=== PATIENT | male | born 1970 | race Caucasian/White ===

== ENCOUNTER → 2019-03-15 | Outpatient (CLI) | payer OTHER ==
[2015-02-14 15:15] VITALS: BP 126/80
[~2019-03-15] MED LIST: ALBU2.5V8 IH; ASPI-621 PO; CETI10TA22 PO; CHOL100013 PO; CONTRAST GIVEN. MC PRN; DIAZ5TAB4 PO; DOCU-109 PO; ESOM40CA25 PO; FLUT9.9S NS; HYDR-2765 PO; IBUP-1060 PO; IOHEXOL 240 MG/ML 50ML VIAL. PO ONE; IOHEXOL 300 MG/ML 100ML VIAL. IV ONE; LACT1CAP8 PO; LORA10TA68 PO; MELO7.5T5 PO; MONT10TA49 PO; MULT1TAB97 PO; Methocarbamol PO; OMEP1CAP18 PO; Oxycodone Hcl/Acetaminophen PO; TRAM50TA PO; ZOLP10TA4 PO; ZOLP5TAB PO
--- NOTE | 2019-03-15 11:17 | KCIC ---
EXAM: CT ABDOMEN/PELVIS WITH CONTRAST. HISTORY: Weight loss. TECHNIQUE: Computed tomography of the abdomen and pelvis was performed after the intravenous administration of iodinated contrast. COMPARISON: None. FINDINGS: Lung windows through the visualized portions of the bases reveal a tiny pleural-based nodule in the right lower lobe on image 6 measuring <3 mm. This is most likely benign. Additional uncalcified nodules in the left lower lobe measure up to 5 mm on image 9. Bone windows reveal no suspicious lesions. The liver, gallbladder, adrenal glands, spleen and kidneys are unremarkable. The pancreas is mildly atrophic but no there is no ductal dilatation or evidence of parenchymal lesion. There are no pathologically enlarged lymph nodes. There is no small bowel obstruction or clear wall thickening. There is no evidence of appendicitis. IMPRESSION: 1. Negative examination. No cause for weight loss is identified. 2. Uncalcified nodules in the lower lobes measure 5 mm or less and are most likely benign. Follow-up could be considered in one year if there are risk factors and long-term stability is not already known. *One or more of the following individualized dose reduction techniques were utilized for this examination: 1. Automated exposure control. 2. Adjustment of the mA and/or kV according to patient size. 3. Use of iterative reconstruction technique. Electronically signed by: Saige Tucker MD (03/15/2019 11:15 AM) [facility]
== END | disposition home or self-care (01) ==
LOC: KCIC CT 09:01
PROVIDERS: ATTEND Internal Medicine Gastroenterology
DX: K86.89 Other specified diseases of pancreas (principal); R91.8 Other nonspecific abnormal finding of lung field
CPT/HCPCS: 74177; Q9966; Q9967

== ENCOUNTER → 2019-05-03 | Outpatient (CLI) | payer OTHER ==
[2015-02-14 15:15] VITALS: BP 126/80
[~2019-05-03] MED LIST changes: +AMIT25TA PO; +ASPI-630 PO; +BUPR1FIL SL; -CETI10TA22 PO; +CETI10TA24 PO; -CONTRAST GIVEN. MC PRN; +ESCITALOPRAM OX10 MG PO; +GABA300C18 PO; -IOHEXOL 240 MG/ML 50ML VIAL. PO ONE; -IOHEXOL 300 MG/ML 100ML VIAL. IV ONE; +KETO10TA PO; +TADA5TAB PO; +VARE1TAB21 PO
--- NOTE | 2019-05-03 10:36 | EKG ---
[facility] [address] [place] [address] Test Date: 2019-05-03 Test Time: 10:36:57 Pat Name: HARJINDER RODRIGUEZ Department: Room: Gender: Production Administrative Assistant: : [id number] Requested By: PINO ESPAÑA Order Number: [id number] Reading MD: Measurements Intervals Cornell Rate: 74 P: 55 WA: 170 QRS: 57 QRSD: 86 T: 52 QT: 368 QTc: 409 Interpretive Statements SINUS RHYTHM QRS(T) CONTOUR ABNORMALITY CONSIDER ANTEROLATERAL MYOCARDIAL DAMAGE POSSIBLY ABNORMAL ECG RI6.01 No previous ECG available for comparison
--- NOTE | 2019-05-03 12:16 | RAD ---
AP and Lateral Views of the Chest 05/03/2019 10:20 AM Indication: Preoperative Comparison: None Findings: There is no focal consolidation or infiltrate identified. The cardiomediastinal silhouette is within normal limits. There is no evidence of pneumothorax or pleural effusion. No acute osseous abnormalities are identified. Impression: No evidence of acute cardiopulmonary process. Electronically signed by: Bulmaro Odell MD (05/03/2019 12:13 PM) [facility]
== END | disposition home or self-care (01) ==
LOC: SURGPAT 10:15
PROVIDERS: ATTEND Orthopaedic Surgery
DX: Z01.818 Encounter for other preprocedural examination (principal); M75.101 Unspecified rotator cuff tear or rupture of right shoulder, not specified as traumatic; G47.30 Sleep apnea, unspecified
CPT/HCPCS: 71046; 93005

== ENCOUNTER 2019-05-04 09:34 | Day surgery (SDC) | payer OTHER ==
[~2019-05-04] VITALS: Ht 175.3 cm; Wt 76.5 kg
[~2019-05-04 09:34] MED LIST changes: -AMIT25TA PO; -BUPR1FIL SL; -ESCITALOPRAM OX10 MG PO; -GABA300C18 PO; +HYDROmorphone 2 MG/ML VIAL IV PRN; +IV RINGERS,LACTATED 1000ML 1,000 ML IV SCH; -KETO10TA PO; +MORPHINE SULFATE 2 MG/ML VIAL. IV PRN; +ONDANSETRON PF 4 MG/2 ML VIAL. IV PRN; +PROCHLORPERAZINE 10 MG/2 ML VIAL. IV PRN; +ceFAZolin SODIUM IV Push 1 GM VIAL. IVP PRN; +fentaNYL PF VIAL 100 MCG/2 ML VIAL IV PRN
[2019-05-04] MEDS ORDERED: BUPR1FIL SL (10:10)
[2019-05-04] MEDS ORDERED: AMIT25TA PO (10:11)
[2019-05-04] MEDS ORDERED: ESCITALOPRAM OX10 MG PO (10:11)
[2019-05-04] MEDS ORDERED: ROPIVacaine 0.5% PF 20 ML VIAL. ONE (10:21)
[2019-05-04] MEDS ORDERED: BUPIVACAINE MPF 0.5% 30 ML VIAL. ONE (10:21)
[2019-05-04] MEDS ORDERED: DEXAMETHASONE SOD PHOS 4 MG/ML VIAL ONE ×2 (10:21→10:22)
[2019-05-04] MEDS ORDERED: PROPOFOL 20 ML IV ONE ×2 (10:23→12:26)
[2019-05-04] MEDS ORDERED: ONDANSETRON PF 4 MG/2 ML VIAL. ONE ×2 (10:23→13:02)
[2019-05-04] MEDS ORDERED: LIDOCAINE 2% PF 5 ML VIAL. ONE (10:23)
[2019-05-04] MEDS ORDERED: MIDAZOLAM HCL/PF 2 MG/2 ML VIAL. ONE (10:30)
[2019-05-04] MEDS ORDERED: ePHEDrine PF IN SALINE 50 MG/10 ML SYRINGE. IV ONE (11:55)
[2019-05-04] MEDS: EPINEPHrine VIAL 30 MG/30 ML VIAL ONE ×2 (12:16→12:17)
[2019-05-04] MEDS ORDERED: KETOROLAC 30 MG/ML VIAL. ONE (13:02)
[2019-05-04] MEDS ORDERED: SEVOFLURANE 61 TO 120 MINUTES. IH ONE (13:04)
[2019-05-04] MEDS ORDERED: fentaNYL PF VIAL 100 MCG/2 ML VIAL ONE (13:14)
[2019-05-04] MEDS ORDERED: GABA300C18 PO (13:35)
[2019-05-04] MEDS ORDERED: KETO10TA PO (13:35)
--- NOTE | 2019-05-04 13:42 | DISCH ---
DISCHARGE INSTRUCTIONS Condition on Discharge Condition on Discharge: Stable Activity After Discharge Activity Instructions for Disc: Other, see below (gentle range of motion of shoulder permissible limit lifting to 5 pounds maximum to protect biceps repair) Bathing Instructions: Shower-keep dressing dry, No Tub Bath until see Lifting Instructions after Dis: No heavy lifting, No pulling or pushing Exercise Instruction after Dis: Progress as tolerated (encourage removal from sling and shoulder motion as tolerated maintain 5 pound lifting limit to protect biceps repair) Diet after Discharge Diet after Discharge: Regular Additional Diet Restrictions: resume home diet Liquid Texture: Thin Liquid Wound Incision Care Wound/Incision Care: Ice to area for comfort, Change dressing (May remove dressing in 2 days may then shower no soaking) Contacting the DRJuliane after DC Call your doctor for: Concerns you may have Follow-Up Follow up with: Dr. Gloria 1 week PINO GLORIA MD May 04, 2019 13:42
[2019-05-04 14:24] VITALS: BP 121/70
--- NOTE | 2019-05-04 14:28 | PDOC4 ---
Operative Note Operative Note Date of surgery: 05/04/2019 Preoperative diagnosis: Right rotator cuff tear and biceps labral tear Postoperative diagnosis: Partial-thickness distal supraspinatus tear anteriorly, type IV SLAP tear with extension to about 4:00 anteriorly and 10:30 position posteriorly with severe labral fraying and instability Operative procedure: Right shoulder arthroscopy extensive debridement of partial-thickness undersurface supraspinatus tear and extensive labral debridement with biceps tenodesis Surgeon: Juani Assist: Willian White speech language assistant Anesthesia: Gen. plus scalene block Estimated blood loss: 20 mL Complications: None Operative indications: Travis has had severe right shoulder pain ongoing and unresponsive to nonoperative treatment. We had discussed his MRI findings physical examination and the concern for a rotator cuff repair and involvement of the biceps labral complex with the possibility of rotator cuff repair biceps tenodesis and other treatment based on the intraoperative pathology. We talked about the sometimes long recovery process for shoulder surgery the rationale for protection of the repairs and exercises both at home and with physical therapy that are often required for satisfactory result. We also talked about the possibility of complications including nonhealing infection nerve or blood vessel damage continued pain medical or other anesthetic complications among others all his questions were answered he wishes to proceed with surgical evaluation and treatment. Operative text: Patient was identified procedure verified patient placed in the supine position on the operating table. After adequate amounts of general anesthesia were administered along with the pre-existing scalene block he was placed in the decubitus position right side up all bony prominences were well- padded and the right shoulder was examined under anesthesia found to have full range of motion no instability. The right shoulder was then prepped and draped in standard sterile fashion placed in arthroscopic arm baez with a total of 10 pounds of traction and after timeout was performed patient procedure identified and verified a standard posterior portal was established an anterior portal established using spinal needle localization and the shoulder joint was systematically examined. Glenohumeral joint surfaces were noted to be well preserved with minimal chondromalacia. He had extensive fraying and involvement of the superior labrum extending anteriorly to about the 4 o'clock position overall posteriorly to about the 10:30 position on the clock face and after light debridement was carried out with the arthroscopic shaver to allow visualization he was noted to have a type IV SLAP tear splitting up into the biceps and affecting its stability. I elected at this point to proceed with the preoperative plan of a biceps tenodesis and after the biceps tendon was tagged and cut the labrum was extensively debrided to remove all of the unstable tissue superiorly extending around the clock face anteriorly and posteriorly as required. He was noted to have a partial undersurface tear of the anterior supraspinatus which was trimmed back to stable tissue and found to encompass less than 50% of the tendon thickness and the remainder of the insertion was intact and a normal bare area of the humerus noted capsule ligament structures otherwise normal intra-articularly. The subacromial space was entered and bursal was cleared to allow visualization and the rotator cuff was examined in all d egrees of internal/external rotation and found to have no further compromise on the bursal surface. Biceps tenodesis was carried out through the anterior portal with the biceps tendon whipstitch, drilling carried out over a guidewire in the lower portion of the bicipital groove with a 7 mm drill bit and an 8 mm [employer] absorbable bolt fixation with excellent tension on the long head biceps tendon. The shoulder joint was drained of arthroscopic fluid portals closed with buried Vicryl and subcuticular Monocryl suture Steri-Strips and Mastisol were applied followed by sterile dressings patient was returned to recovery room in s table condition having tolerated procedure well. Her there are I discussed extensive plans with his about his postoperative pain management to include going back on his scheduled Suboxone adding gabapentin and ketorolac oral as the patient wishes to remain off narcotics if at all possible. If his pain is severe and uncontrolled with these measures he does have a prescription for Dilaudid 2 mg #20 to get him through until we can reorient his regimen and and patient indicated agreement with this plan. PINO ESPAÑA MD May 04, 2019 14:27
[2019-05-04] MEDS ORDERED: KETOROLAC 30 MG/ML VIAL. IVP ONE (15:00)
== END 2019-05-04 15:09 | disposition home or self-care (01) ==
LOC: SURG 09:34
PROVIDERS: ATTEND Orthopaedic Surgery
DX: S43.431A Superior glenoid labrum lesion of right shoulder, initial encounter (principal); M75.111 Incomplete rotator cuff tear or rupture of right shoulder, not specified as traumatic; G47.30 Sleep apnea, unspecified; G43.909 Migraine, unspecified, not intractable, without status migrainosus; J45.909 Unspecified asthma, uncomplicated; K21.9 Gastro-esophageal reflux disease without esophagitis; F32.9 Major depressive disorder, single episode, unspecified; F41.9 Anxiety disorder, unspecified; X58.XXXA Exposure to other specified factors, initial encounter; Y93.89 Activity, other specified; Y92.89 Other specified places as the place of occurrence of the external cause; Y99.8 Other external cause status; Z90.49 Acquired absence of other specified parts of digestive tract; Z87.39 Personal history of other diseases of the musculoskeletal system and connective tissue
CPT/HCPCS: 29823; 29828; 64415; A7015; C1713; J0171; J0690; J1100; J1885; J2001; J2250; J2405; J2704; J2795; J3010; J3490